=== PATIENT | female | born 1950 | race Two or more races ===

== ENCOUNTER 2022-07-04 07:15 | Inpatient (IN) | payer OTHER ==
[~2022-07-04] VITALS: Ht 162.6 cm; Wt 79.8 kg
[2022-07-04] MEDS ORDERED: IRBESARTAN-HCT1 EACH PO (08:55)
[2022-07-04] MEDS ORDERED: ARICEPT10 MG PO (08:56)
[2022-07-04] MEDS ORDERED: SYNJARDY XR 101 EACH PO (08:56)
[2022-07-04] MEDS ORDERED: CRESTOR5 MG PO (08:56)
[2022-07-04] MEDS ORDERED: GABAPENT PO (08:57)
[2022-07-08] MEDS ORDERED: IRBESARTAN300 MG (13:29)
[2022-07-08] MEDS ORDERED: TIMOLOL MALEATE5 M4 (13:29)
[2022-07-08] MEDS ORDERED: LUMIGAN2.5 M1 (13:30)
[2022-07-08] MEDS ORDERED: VITAMIN D3250 MCG (13:30)
[2022-07-08] MEDS ORDERED: ST. JOSEPH ASPI81 M2 (13:30)
[2022-07-08] MEDS ORDERED: GABAPENTIN100 M2 ×2 (13:31→13:32)
[2022-07-10] MEDS ORDERED: ELIQUIS2.5 MG PO (15:20)
[2022-07-10] MEDS ORDERED: DUI500 PO (15:20)
[2022-07-10] MEDS ORDERED: PERCOCET 5-3251 EACH PO (15:20)
== END 2022-07-10 19:30 | DRG 470 ==
LOC: O/R 07-08 06:39 → SURH 07-08 07:00
PROVIDERS: ADMIT Orthopaedic Surgery; ATTEND Orthopaedic Surgery
PROC: 0MTM0ZZ Resection of Left Hip Bursa and Ligament, Open Approach (ICD-10-PCS; 2022-07-08)
PROC: 0SRB0JZ Replacement of Left Hip Joint with Synthetic Substitute, Open Approach (ICD-10-PCS; principal; 2022-07-08 07:00)
DX: M16.12 Unilateral primary osteoarthritis, left hip (principal); M81.0 Age-related osteoporosis without current pathological fracture; M25.652 Stiffness of left hip, not elsewhere classified; M70.62 Trochanteric bursitis, left hip; I10 Essential (primary) hypertension